=== PATIENT | male | born 1965 | race Caucasian/White ===

== ENCOUNTER 2024-10-05 06:14 | Day surgery (SDC) | payer OTHER, SELFPAY ==
[2024-09-23 10:43] VITALS: BMI 42.1
--- NOTE | 2024-09-23 12:18 | PTCARENOTE ---
Abn ECG, ECG reviewed by Dr. Henson, no request made.
[2024-09-29 10:10] VITALS: BMI 42.1
[2024-10-05] VITALS (9 sets, daily range): BP systolic 134–185; BP diastolic 76–97; BMI 42.1
[2024-10-05] MEDS: TYLENOL 1000 MG PO (12:44)
[2024-10-05] MEDS: NORMOSOL-R/PLASMALYTE-A 1000 IV (12:45)
--- NOTE | 2024-10-05 19:07 | W.IMMPOSTOP ---
Surgical Immed Post Op Note
-
Primary Surgeon: Ag Goel MD
Assisting Surgeon:
Pre-op Diagnosis: right knee medial meniscal tear, osteoarthritis
Post-op Diagnosis: right knee medial meniscal tear, osteoarthritis
Procedure Performed: right knee arthroscopic partial medial meniscectomy, chondroplasty
Anesthesia Type: general
Specimen / Cultures: none
Estimated Blood Loss: 5mL
Tourniquet time: 50 minutes
Complications: none apparent
Operative Findings: grade 2 chondral changes to the trochlea; grade 2/3 chondral changes to medial femoral condyle; oblique medial meniscal tear
Operative dictation #: [id number]
[2024-10-05] MEDS: ROXICODONE 5 MG PO (19:26)
[2024-10-05] MEDS: TYLENOL 650 MG PO (19:26)
== END 2024-10-05 19:53 | disposition home or self-care (01) ==
LOC: SDS 06:14
PROVIDERS: ATTENDING PHYSICIAN Student in an Organized Health Care Education/Training Program; FAMILY PHYSICIAN Family Medicine
DX: S83.241A Other tear of medial meniscus, current injury, right knee, initial encounter (principal); X58.XXXA Exposure to other specified factors, initial encounter; M17.11 Unilateral primary osteoarthritis, right knee
CPT/HCPCS: 29881; 29879; 36415; 93005